=== PATIENT | female | born 1995 | race Caucasian/White ===

== ENCOUNTER 2018-07-09 11:57 | Emergency (ER) | payer OTHER ==
[2018-07-09 12:22] VITALS: BP 110/66
--- NOTE | 2018-07-09 12:29 | Emergency Department Report ---
Blank Doc - Documentation Documentation: 23 y o f presents with low back pain pain and sob x this am also cc of low back pain with no injury fall or trauma upt, ua reevaluate
[2018-07-09 13:36] LABS: Bilirubin,Urine NEG (Negative); Blood,Urine NEG (Negative); Color,Urine Yellow (Yellow); Mucus,Urine FEW /HPF; Protein,Urine <15 mg/dL mg/dL (Negative); Urobilinogen,Urine < 2.0 mg/dL (<2.0); WBC,Urine < 1.0 /HPF (0.0-6.0)
[2018-07-09 13:38] LABS: HCG Qualitative,Urine Negative (Negative)
--- NOTE | 2018-07-09 15:33 | Emergency Department Report ---
ED Back Pain/Injury HPI - General Chief Complaint: Back Pain/Injury Stated Complaint: ALLERGY CRISIS/LOW BACK PAIN Time Seen by Provider: 07/09/18 12:24 Source: patient Limitations: No Limitations - History of Present Illness Initial Comments: Patient is a 23-year-old female who is presenting with low back pain has been present for approximately 3 months. Patient states it hurts worse with movement as 8 out of 10. She states the aching pain. Patient denies any vaginal bleeding or vaginal discharge dysuria cough, congestion or fevers or chills. Patient also states that she chronically has allergies but this morning she woke up and felt like she was gas and for air. Patient took her allergy nasal spray which did improve her symptoms. Again patient denies any cough congestion fevers or chills. - Related Data Previous Rx's Medication Instructions Recorded Last Taken Type ALBUTEROL Inhaler (OR & NICU) 2 puff IH QID PRN #1 inhalation 07/09/18 Unknown Rx [ProAir HFA Inhaler] Fluticasone [Flonase] 1 spray NS QDAY #1 bottle 07/09/18 Unknown Rx Ibuprofen [Motrin] 600 mg PO Q8H PRN #20 tablet 07/09/18 Unknown Rx Loratadine [Claritin] 10 mg PO DAILY #30 tablet 07/09/18 Unknown Rx methOCARBAMOL [Robaxin TAB] 500 mg PO Q6H PRN #15 tablet 07/09/18 Unknown Rx ED Review of Systems ROS: Stated complaint: ALLERGY CRISIS/LOW BACK PAIN Other details as noted in HPI Comment: All other systems reviewed and negative ED Back Pain Physical Exam - Exam General: Vital signs noted. No distress. Alert and acting appropriately. Back/Abdomen: No Abdominal Tenderness, No Perithoracic Tenderness, No Perilumbar Tenderness, No Sacroiliac Tenderness, No Flank Tenderness, No Straight Leg Raise Pain Neuro: Yes Normal Sensation, Yes Normal DTR's, Yes Normal Gait, No Motor Weakness ED Course Vital Signs 07/09/18 12:21 Temperature 97.1 F L Pulse Rate 96 H Respiratory 14 Rate Blood Pressure 110/66 [Left] O2 Sat by Pulse 100 Oximetry ED Medical Decision Making - Lab Data Lab Results 07/09/18 07/09/18 Range/Units 13:25 13:25 Urine Color Yellow (Yellow) Urine Turbidity Clear (Clear) Urine pH 6.0 (5.0-7.0) Ur Specific [place] 1.016 (1.003-1.030) Urine Protein <15 mg/dl (Negative) mg/dL Urine Glucose (UA) Neg (Negative) mg/dL Urine Ketones Neg (Negative) mg/dL Urine Blood Neg (Negative) Urine Nitrite Neg (Negative) Urine Bilirubin Neg (Negative) Urine Urobilinogen < 2.0 (<2.0) mg/dL Ur Leukocyte Esterase Neg (Negative) Urine WBC (Auto) < 1.0 (0.0-6.0) /HPF Urine RBC (Auto) 2.0 (0.0-6.0) /HPF U Epithel Cells (Auto) 6.0 (0-13.0) /HPF Urine Mucus Few /HPF Urine HCG, Qual Negative (Negative) Critical care attestation.: If time is entered above; I have spent that time in minutes in the direct care of this critically ill patient, excluding procedure time. ED Disposition Clinical Impression: Back pain Qualifiers: Back pain location: low back pain Chronicity: chronic Back pain laterality: unspecified Sciatica presence: without sciatica Qualified Code(s): M54.5 - Low back pain; G89.29 - Other chronic pain Allergic rhinitis Qualifiers: Allergic rhinitis trigger: unspecified Allergic rhinitis seasonality: unspecified Qualified Code(s): J30.9 - Allergic rhinitis, unspecified Disposition: DC-01 TO HOME OR SELFCARE Is pt being admited?: No Does the pt Need Aspirin: No Condition: Stable Instructions: Low Back Strain (ED), Allergic Rhinitis (ED) Referrals: SHARRI LEO MD [Staff Physician] - 3-5 Days Time of Disposition: 15:33 Print Language: MALAYSIAN
== END 2018-07-09 15:50 | disposition home or self-care (01) ==
LOC: ED 11:57
DX: M54.5 Low back pain (principal); G89.29 Other chronic pain; J30.9 Allergic rhinitis, unspecified
CPT/HCPCS: 81001; 81025; 99283

== ENCOUNTER 2019-03-16 21:32 | Emergency (ER) | payer OTHER ==
[2019-03-16 21:44] VITALS: BP 115/70
--- NOTE | 2019-03-16 22:08 | Event Note ---
ED Screening Note Date of service: 03/16/19 Time: 22:00 ED Screening Note: This is a 24 y.o. F. that presents to the ER with vomiting, frontal headache, and numbness in lips x 3 days. PMH of PCOS LMP current now This initial assessment/diagnostic orders/clinical plan/treatment(s) is/are sub ject to change based on patients health status, clinical progression and re- assessment by fellow clinical providers in the ED. Further treatment and workup at subsequent clinical providers discretion. Patient/guardian urged not to elope from the ED as their condition may be serious if not clinically assessed and managed. Initial orders include: Labs
[2019-03-16 22:37] LABS: HCG Qualitative,Urine Negative (Negative)
[2019-03-16 22:41] LABS: Bilirubin,Urine NEG (Negative); Blood,Urine LG (Negative); Color,Urine Red (Yellow); Urobilinogen,Urine < 2.0 mg/dL (<2.0)
[2019-03-16 22:44] LABS: RBC,Urine > 182.0 /HPF (0.0-6.0)
[2019-03-16 23:00] LABS: Basophils # (Auto) 0.1 K/mm3 (0.0-0.1); Basophils % (Auto) 0.6 % (0.0-1.8); Eosinophils # (Auto) 0.3 K/mm3 (0.0-0.4); Eosinophils % (Auto) 3.5 % (0.0-4.3); Hematocrit 40.2 % (30.3-42.9); Hemoglobin 13.8 gm/dl (10.1-14.3); Lymphocytes # (Auto) 3.2 K/mm3 (1.2-5.4); Lymphocytes % (Auto) 35.9 % (13.4-35.0); Mean Corpuscular HGB Conc 34 % (30-34); Mean Corpuscular Volume 89 fl (79-97); Monocytes # (Auto) 0.7 K/mm3 (0.0-0.8); Platelet Count 322 K/mm3 (140-440); Red Blood Count 4.51 M/mm3 (3.65-5.03); Red Cell Distribution Width 12.9 % (13.2-15.2)
[2019-03-16 23:17] LABS: Alanine Aminotransferase 18 units/L (7-56); Albumin 4.6 g/dL (3.9-5); BUN/Creatinine Ratio 15; Blood Urea Nitrogen 9 mg/dL (7-17); Calcium 9.7 mg/dL (8.4-10.2); Hemolysis Index 6
[2019-03-16] MEDS ORDERED: TORADOL IV ONE (23:21)
[2019-03-16] MEDS ORDERED: NACL 0.9% 1000 ML 1,000 ML IV ONE (23:21)
[2019-03-16] MEDS ORDERED: BENADRYL IV ONE (23:21)
[2019-03-16] MEDS ORDERED: REGLAN IV ONE (23:21)
--- NOTE | 2019-03-16 23:36 | Emergency Department Report ---
ED Headache HPI - General Chief Complaint: Headache Stated Complaint: VOMITING/GRIJALVA/L EYE PAIN Time Seen by Provider: 03/16/19 21:58 Source: patient Exam Limitations: language barrier (language line used for equatorial guinean interpr etation, interpretor [id number]) - History of Present Illness Initial Comments: Patient is a 24-year-old female presents emergency room with complaints of a frontal headache that began 3 days ago. Patient states she has had one episode of vomiting today and one episode of vomiting yesterday. She states that she also has left eye pain and decreased sensation in the tongue. Denies any vision changes, unilateral weakness, gait disturbance, speech disturbance. pt is able to move the tongue without difficulty. she is not taking anything for her symptoms at all. She denies ever having this in the past. Has a past medical history of chronic back pain and PCOS. Denies any allergies medications. States she is currently on her menstrual cycle. Allergies/Adverse Reactions: Allergies No Known Allergies Allergy (Unverified 03/16/19 21:56) Home Medications: Ambulatory Orders ALBUTEROL Inhaler (OR & NICU) [ProAir HFA Inhaler] 2 puff IH QID PRN #1 inhalation 07/09/18 Fluticasone [Flonase] 1 spray NS QDAY #1 bottle 07/09/18 Ibuprofen [Motrin] 600 mg PO Q8H PRN #20 tablet 07/09/18 Loratadine [Claritin] 10 mg PO DAILY #30 tablet 07/09/18 methOCARBAMOL [Robaxin TAB] 500 mg PO Q6H PRN #15 tablet 07/09/18 Butalb/Acetaminophen/Caffeine [Fioricet 50-300-40 mg CAP] 1 cap PO Q8HR PRN #10 cap 03/17/19 ED Review of Systems ROS: Stated complaint: VOMITING/GRIJALVA/L EYE PAIN Other details as noted in HPI Comment: All other systems reviewed and negative ED Past Medical Hx - Past Medical History Previous Medical History?: Yes Additional medical history: PCOS, MULTIPLE SPINAL DISC ISSUES - Surgical History Past Surgical History?: No - Social History Smoking Status: Current Every Day Smoker - Medications Home Medications: Home Medications Medication Instructions Recorded Confirmed Last Taken Type ALBUTEROL Inhaler (OR & NICU) 2 puff IH QID PRN #1 inhalation 07/09/18 Unknown Rx [ProAir HFA Inhaler] Fluticasone [Flonase] 1 spray NS QDAY #1 bottle 07/09/18 Unknown Rx Ibuprofen [Motrin] 600 mg PO Q8H PRN #20 tablet 07/09/18 Unknown Rx Loratadine [Claritin] 10 mg PO DAILY #30 tablet 07/09/18 Unknown Rx methOCARBAMOL [Robaxin TAB] 500 mg PO Q6H PRN #15 tablet 07/09/18 Unknown Rx Butalb/Acetaminophen/Caffeine 1 cap PO Q8HR PRN #10 cap 03/17/19 Unknown Rx [Fioricet 50-300-40 mg CAP] ED Physical Exam - General Limitations: No Limitations General appearance: alert, in no apparent distress - Head Head exam: Present: atraumatic, normocephalic - Eye Eye exam: Present: normal appearance, PERRL, EOMI. Absent: conjunctival injection, nystagmus, periorbital swelling, periorbital tenderness - ENT ENT exam: Present: mucous membranes moist, other (no sinus TTP bilaterally) - Neck Neck exam: Present: full ROM. Absent: meningismus - Respiratory Respiratory exam: Present: normal lung sounds bilaterally. Absent: respiratory distress, wheezes, rales, rhonchi, stridor, chest wall tenderness, accessory muscle use, decreased breath sounds, prolonged expiratory - Cardiovascular Cardiovascular Exam: Present: regular rate, normal rhythm, normal heart sounds. Absent: systolic murmur, diastolic murmur, rubs, gallop - Neurological Exam Neurological exam: Present: alert, oriented X3, CN II-XII intact, normal gait, other (normal finger to nose, normal heel to rooney, 5/5 strength in the BUE/BLE, sensation intact throughout, no focal neuro deficit, no tongue deviation, normal speech). Absent: motor sensory deficit - Psychiatric Psychiatric exam: Present: normal affect, normal mood - Skin Skin exam: Present: warm, dry, intact ED Course Vital Signs 03/16/19 03/16/19 21:42 22:03 Temperature 97.9 F 97.9 F Pulse Rate 72 72 Respiratory 18 18 Rate Blood Pressure 115/70 115/70 O2 Sat by Pulse 99 99 Oximetry ED Medical Decision Making - Lab Data Result diagrams: 03/16/19 22:33 03/16/19 22:33 Lab Results 10/19/19 10/19/19 10/19/19 Range/Units 22:33 22:33 Unknown WBC 9.0 (4.5-11.0) K/mm3 RBC 4.51 (3.65-5.03) M/mm3 Hgb 13.8 (10.1-14.3) gm/dl Hct 40.2 (30.3-42.9) % MCV 89 (79-97) fl MCH 31 (28-32) pg MCHC 34 (30-34) % RDW 12.9 L (13.2-15.2) % Plt Count 322 (140-440) K/mm3 Lymph % (Auto) 35.9 H (13.4-35.0) % [place] % (Auto) 8.0 H (0.0-7.3) % Eos % (Auto) 3.5 (0.0-4.3) % Baso % (Auto) 0.6 (0.0-1.8) % Lymph # 3.2 (1.2-5.4) K/mm3 [place] # 0.7 (0.0-0.8) K/mm3 Eos # 0.3 (0.0-0.4) K/mm3 Baso # 0.1 (0.0-0.1) K/mm3 Seg Neutrophils % 52.0 (40.0-70.0) % Seg Neutrophils # 4.7 (1.8-7.7) K/mm3 Sodium 138 (137-145) mmol/L Potassium 4.5 (3.6-5.0) mmol/L Chloride 99.8 (98-107) mmol/L Carbon Dioxide 26 (22-30) mmol/L Anion Gap 17 mmol/L BUN 9 (7-17) mg/dL Creatinine 0.6 L (0.7-1.2) mg/dL Estimated GFR > 60 ml/min BUN/Creatinine Ratio 15 % Glucose 96 (65-100) mg/dL Calcium 9.7 (8.4-10.2) mg/dL Total Bilirubin 0.40 (0.1-1.2) mg/dL AST 12 (5-40) units/L ALT 18 (7-56) units/L Alkaline Phosphatase 61 (35-129) units/L Total Protein 7.4 (6.3-8.2) g/dL Albumin 4.6 (3.9-5) g/dL Albumin/Globulin Ratio 1.6 % Urine Color Red (Yellow) Urine Turbidity Slightly-cloudy (Clear) Urine pH 6.0 (5.0-7.0) Ur Specific [place] 1.014 (1.003-1.030) Urine Protein 30 mg/dl (Negative) mg/dL Urine Glucose (UA) Neg (Negative) mg/dL Urine Ketones Neg (Negative) mg/dL Urine Blood Lg (Negative) Urine Nitrite Neg (Negative) Ur Reducing Substances Not Reportable Urine Bilirubin Neg (Negative) Urine Ictotest Not Reportable Urine Urobilinogen < 2.0 (<2.0) mg/dL Ur Leukocyte Esterase Neg (Negative) Urine WBC (Auto) 2.0 (0.0-6.0) /HPF Urine RBC (Auto) > 182.0 (0.0-6.0) /HPF Urine HCG, Qual Negative (Negative) - Radiology Data Radiology results: report reviewed CT head without contrast INDICATION : Headache with dizziness TECHNIQUE: Axial imaging performed from the skull apex through the skull base without the use of contrast. All CT examinations performed at this facility utilize dose modulation, iterative reconstruction or weight-based dosing, when appropriate, to reduce radiation dose to as low as reasonably achievable. COMPARISON: None FINDINGS: No acute intracranial hemorrhage or parenchymal abnormality. Ventricles are normal in size and appear symmetric. Soft tissues including the orbits appear normal. No acute osseous abnormality. Sinuses and mastoid air cells are clear. IMPRESSION: No acute abnormality. Signer Name: Victor M Bernabe MD Signed: 03/16/2019 11:46 PM Workstation Name: [id number] Transcribed By: BC Dictated By: Victor M Bernabe MD Electronically Authenticated By: Victor M Bernabe MD Signed Date/Time: 03/16/19 1000 - Medical Decision Making Patient is a 24-year-old female presents emergency room with complaints of a frontal headache that began 3 days ago. Patient states she has had one episode of vomiting today and one episode of vomiting yesterday. She states that she also has left eye pain and decreased sensation in the tongue. Denies any vision changes, unilateral weakness, gait disturbance, speech disturbance. pt is able to move the tongue without difficulty. she is not taking anything for her symptoms at all. She denies ever having this in the past. Has a past medical history of chronic back pain and PCOS. Denies any allergies medications. States she is currently on her menstrual cycle. VSS. no neurological deficits on examination. labs are stable. UA shows RBCs from her menstrual cycle otherwise normal. urine preg is negative. CT head: No acute abnormality. pt given 1L of NS, reglan, and toradol and GRIJALVA completely resolved and pt is feeling better. she declined the benadryl. Discussed all results with patient and patient's questions answered. Patient given prescription for Fioricet. advised pt to Take medication as prescribed as needed. Please increase your water intake. Follow- up with a neurologist in the next 2-3 days. Return to the emergency room for any worsening symptoms. equatorial gu[place] interpretation for results of tests, answer questions, and disposition performed by Mike optical laboratory technician - Differential Diagnosis migraine, tension GRIJALVA, cluster GRIJALVA, sinusitis, mass, ICH, SDH, CVA Critical care attestation.: If time is entered above; I have spent that time in minutes in the direct care of this critically ill patient, excluding procedure time. ED Disposition Clinical Impression: Headache Qualifiers: Headache type: unspecified Headache chronicity pattern: acute headache Intractability: not intractable Qualified Code(s): R51 - Headache Disposition: DC-01 TO HOME OR SELFCARE Is pt being admited?: No Does the pt Need Aspirin: No Condition: Stable Instructions: Acute Headache (ED) Additional Instructions: Take medication as prescribed as needed. Please increase your water intake. Follow-up with a neurologist in the next 2-3 days. Return to the emergency room for any worsening symptoms. Winger la medicacin segn lo prescrito segn sea necesario. Por favor aumente funes consumo de agua. Ananya un seguimiento con un neurlogo en los prximos 2-3 hammond. Regrese a la fabricio de emergencias por cualquier empeoramiento de los sntomas. Prescriptions: Butalb/Acetaminophen/Caffeine [Fioricet 50-300-40 mg CAP] 1 cap PO Q8HR PRN #10 cap PRN Reason: headache Referrals: PRIMARY CAREMD [Primary Care Provider] - 2-3 Days AMNA MCKEE MD [Referring] - 2-3 Days DAPHNIE DAVIS MD [Staff Physician] - 2-3 Days Time of Disposition: 00:16 Print Language: ROMANIAN
--- NOTE | 2019-03-16 23:50 | Cat Scan Report ---
CT head without contrast INDICATION : Headache with dizziness TECHNIQUE: Axial imaging performed from the skull apex through the skull base without the use of con trast. All CT examinations performed at this facility utilize dose modulation, iterative reconstruct ion or weight-based dosing, when appropriate, to reduce radiation dose to as low as reasonably achiev able. COMPARISON: None FINDINGS: No acute intracranial hemorrhage or parenchymal abnormality. Ventricles are normal in si ze and appear symmetric. Soft tissues including the orbits appear normal. No acute osseous abnorm ality. Sinuses and mastoid air cells are clear. IMPRESSION: No acute abnormality. Signer Name: Victor M Bernabe MD Signed: 03/16/2019 11:46 PM Workstation Name: [id number]
[2019-03-17] MEDS ORDERED: SOLU-Medrol ONE (16:11)
== END 2019-03-17 00:31 | disposition home or self-care (01) ==
LOC: ED 21:32
DX: R51 Headache (principal); R11.10 Vomiting, unspecified; H57.12 Ocular pain, left eye; F17.200 Nicotine dependence, unspecified, uncomplicated; E28.2 Polycystic ovarian syndrome; Z79.899 Other long term (current) drug therapy
CPT/HCPCS: 36415; 70450; 80053; 81001; 81025; 85025; 96361; 96374; 96375; 99284; J1200; J1885; J2765; J7030; J2920

== ENCOUNTER 2019-03-17 11:39 | Observation (INO) | payer OTHER ==
--- NOTE | 2019-03-17 11:49 | Event Note ---
ED Screening Note Date of service: 03/17/19 Time: 11:46 ED Screening Note: This is a 24 y.o. F. that presents to the ER with worsening numbness and tingling to right side of face. Started on Fioricet and referred to neurology yesterday. This initial assessment/diagnostic orders/clinical plan/treatment(s) is/are subject to change based on patients health status, clinical progression and re- assessment by fellow clinical providers in the ED. Further treatment and workup at subsequent clinical providers discretion. Patient/guardian urged not to elope from the ED as their condition may be serious if not clinically assessed and managed. Initial orders include:
[2019-03-17] MEDS ORDERED: BENADRYL IV ONE (12:56)
[2019-03-17] MEDS ORDERED: REGLAN IV ONE (12:56)
[2019-03-17] MEDS ORDERED: TORADOL IV ONE (12:56)
--- NOTE | 2019-03-17 13:00 | Emergency Department Report ---
ED Neuro Deficit HPI - General Chief Complaint: Neuro Symptoms/Deficit Stated Complaint: R EYE TINGLE/NUMBNESS/FACE DROPE Time Seen by Provider: 03/17/19 11:43 Source: patient Mode of arrival: Ambulatory Limitations: No Limitations - History of Present Illness Initial Comments: 24-year-old female with past medical history of PCOS and chronic back pain p resents to the hospital complains of numbness to right side of face that she noted while brushing her teeth this morning. Patient was seen and evaluated a year yesterday for a frontal headache that began 3 days ago with associated vomiting for the past 2 days prior to presentation. She also complained of some left eye pain and decreased sensation to the tongue. Patient was treated with Toradol, Benadryl, and Reglan and had a CT head that was negative. She was discharged on Fioricet. Patient had an epidural performed 10 days ago for chronic back pain. She does have a history of previous headaches but has not had headaches in quite some time. Patient now complains of a pressure to the top and back of head rated 7/10 in intensity. She denies eye pain, blurred vision, nausea, or vomiting. - Related Data Home Medications: Previous Rx's Medication Instructions Recorded Last Taken Type ALBUTEROL Inhaler (OR & NICU) 2 puff IH QID PRN #1 inhalation 07/09/18 Unknown Rx [ProAir HFA Inhaler] Fluticasone [Flonase] 1 spray NS QDAY #1 bottle 07/09/18 Unknown Rx Ibuprofen [Motrin] 600 mg PO Q8H PRN #20 tablet 07/09/18 Unknown Rx Loratadine [Claritin] 10 mg PO DAILY #30 tablet 07/09/18 Unknown Rx methOCARBAMOL [Robaxin TAB] 500 mg PO Q6H PRN #15 tablet 07/09/18 Unknown Rx Butalb/Acetaminophen/Caffeine 1 cap PO Q8HR PRN #10 cap 03/17/19 Unknown Rx [Fioricet 50-300-40 mg CAP] Allergies/Adverse Reactions: Allergies Allergy/AdvReac Type Severity Reaction Status Date / Time No Known Allergies Allergy Verified 03/17/19 11:41 ED Review of Systems ROS: Stated complaint: R EYE TINGLE/NUMBNESS/FACE DROPE Other details as noted in HPI Comment: All other systems reviewed and negative ED Past Medical Hx - Past Medical History Previous Medical History?: Yes Additional medical history: PCOS, MULTIPLE SPINAL DISC ISSUES - Surgical History Past Surgical History?: No - Social History Smoking Status: Never Smoker Substance Use Type: None - Medications Home Medications: Home Medications Medication Instructions Recorded Confirmed Last Taken Type ALBUTEROL Inhaler (OR & NICU) 2 puff IH QID PRN #1 inhalation 07/09/18 Unknown Rx [ProAir HFA Inhaler] Fluticasone [Flonase] 1 spray NS QDAY #1 bottle 07/09/18 Unknown Rx Ibuprofen [Motrin] 600 mg PO Q8H PRN #20 tablet 07/09/18 Unknown Rx Loratadine [Claritin] 10 mg PO DAILY #30 tablet 07/09/18 Unknown Rx methOCARBAMOL [Robaxin TAB] 500 mg PO Q6H PRN #15 tablet 07/09/18 Unknown Rx Butalb/Acetaminophen/Caffeine 1 cap PO Q8HR PRN #10 cap 03/17/19 Unknown Rx [Fioricet 50-300-40 mg CAP] ED Neuro Physical Exam - General Limitations: No Limitations Suspected Stroke: No - Neurological Exam Neurological exam: Present: alert - NIHSS Assessment Interval: Baseline 1a. Level of Consciousness: alert/keenly responsive 1b. LOC Questions: answers both correctly 1c. LOC Commands: performs tasks correctly 2. Best Gaze: normal 3. Visual: no visual loss 4. Facial Palsy: unilateral complete paralysis (mild upper right weakness, more pronounced in lower face) 5b. Motor Arm Right: no drift 5a. Motor Arm Left: no drift 6a. Motor Leg Left: no drift 6b. Motor Leg Right: no drift 7. Limb Ataxia: absent 8. Sensory: mild/moderate sensory loss (to right side of face) 9. Best Language: no aphasia 10. Dysarthria: normal 11. Extinction/Inattention: no abnormality Total Score: 4 Stroke Severity: Minor Stroke - Other Other exam information: Gen.: No acute distress Head: Atraumatic Eyes: Normal appearance ENT: Moist mucous membranes Neck: Normal appearance, no posterior midline tenderness, no meningismus Chest: Clear to auscultation bilaterally Cardiovascular: Regular rate and rhythm Abdomen: Normal appearance, soft, nontender, no rebound or guarding, normal bowel sounds Back: Normal appearance, nontender Extremity: Full range of motion, normal appearance Neuro: Alert O x3, clear speech, left-sided facial weakness to the lower face and to a lesser extent the upper face and decreased sensation to the lower two thirds of the face. see NIHSS Psychiatric: Appropriate Skin: No rash ED Course Vital Signs 03/17/19 03/17/19 03/17/19 11:44 12:11 12:46 Temperature 98.8 F Pulse Rate 95 H Respiratory 18 18 18 Rate Blood Pressure 142/68 Blood Pressure 118/70 [Left] O2 Sat by Pulse 100 98 99 Oximetry 03/17/19 03/17/19 03/17/19 12:47 14:49 16:00 Temperature 98.2 F Pulse Rate 90 88 92 H Respiratory 18 18 Rate Blood Pressure Blood Pressure 101/59 106/63 [Left] O2 Sat by Pulse 99 98 Oximetry - Consultations Consultation #1: 03/17/19 13:20 requested tele neuro assessment 03/17/19 13:[address] Marcelino, rec MRI for neuro clearance - Medical Decision Making Case discussed with the neurologist who recommends MRI which unfortunately is not available over the weekend. This will require inpatient admission which was discussed with the consulting neurologist. Case discussed with hospitalist for admission. Patient treated with Reglan, Benadryl, and Toradol in the ED for headache. ASA also provided pending completion of neuro workup. - Differential Diagnosis migraine, bells, ms, infection, Critical Care Time: No Critical care attestation.: If time is entered above; I have spent that time in minutes in the direct care of this critically ill patient, excluding procedure time. ED Disposition Clinical Impression: Weakness on left side of face, Numbness and tingling of left side of face Headache Qualifiers: Headache type: unspecified Headache chronicity pattern: acute headache Intractability: not intractable Qualified Code(s): R51 - Headache Disposition: OP ADMIT IP TO THIS HOSP Is pt being admited?: Yes Does the pt Need Aspirin: Yes Condition: Stable Time of Disposition: 14:07 (Dr Rendon/hosp)
--- NOTE | 2019-03-17 13:53 | Consultation ---
History of Present Illness History of present illness: [facility] Impression: Exam seems more functional. Can rule out sinister intracranial process with MRI brain wow - if this is negative, then can follow up with outpatient neurology. Recommendations: MRI brain wow Nonnarcotic analgesics for GRIJALVA - NSAID, steroid, anti-dopaminergic anti-emetic, magnesium Gentle hydration If MRI brain normal, then can follow up with outpatient neurology Discussed with ED MD CC: GRIJALVA History of Present Illness: 24 year old woman with a history of PCOS, chronic back pain presenting with GRIJALVA and facial symptoms. Was in the ED yesterday for 3 days of migrating GRIJALVA with reported vomiting, but no light/sound sensitivity. She had a normal exam and CT and was discharged with Fiorcet. She returns today stating she was brushing her teeth this morning and felt the right side of her mouth was numb and drooping. Still feels she has these symptoms. Notes she continues to have a migrating GRIJALVA that shifts around her head and is aching. No position GRIJALVA. No pulsatile tinnitus. No extremity symptoms. Diagnostic Testing: CT head wo 03/16 - normal Vital Signs: Reviewed in EMR Exam: Mental Status: Awake, alert, oriented Naming: Intact Repetition: Intact Speech: fluent Cranial Nerves: Pupils: Equal round and reactive to light Extraocular movements: Intact in all cardinal gaze Ptosis: Absent Visual ramos: Intact to finger counting Facial sensation: reduced on right Facial movements: at rest face is symmetric with symmetric movement when speaking. When formally testing, she has odd contortion of the mouth Motor Exam: No drift Tremor/Abnormal Movements: Resting tremor: Absent Intention tremor: Absent Postural tremor: Absent Sensory Exam: Light touch: Intact Pinprick: Intact Coordination: Finger to nose: Intact Heel to rooney: Intact Medical Decision Making: - Extensive number of diagnosis or management options are considered above. - Extensive amount of complex data reviewed. - High risk of complication and/or morbidity or mortality are associated with differential diagnostic considerations above. - There may be uncertain outcome and increased probability of prolonged functional impairment or high probability of severe prolonged functional impairment associated with some of these differential diagnosis. Medical Data Reviewed: 1.Data reviewed include clinical labs, radiology, Medical Tests; 2.Tests results discussed w/performing or interpreting physician; 3.Obtaining/reviewing old medical records; 4.Obtaining case history from another source; 5.Independent review of image, tracing or specimen. Patient was informed the Neurology Consult would happen via TeleHealth consult by way of interactive audio and video telecommunications and consented to receiving care in this manner. Medications and Allergies Allergies Allergy/AdvReac Type Severity Reaction Status Date / Time No Known Allergies Allergy Verified 03/17/19 11:41 Home Medications Medication Instructions Recorded Confirmed Last Taken Type ALBUTEROL Inhaler (OR & NICU) 2 puff IH QID PRN #1 inhalation 07/09/18 Unknown Rx [ProAir HFA Inhaler] Fluticasone [Flonase] 1 spray NS QDAY #1 bottle 07/09/18 Unknown Rx Ibuprofen [Motrin] 600 mg PO Q8H PRN #20 tablet 07/09/18 Unknown Rx Loratadine [Claritin] 10 mg PO DAILY #30 tablet 07/09/18 Unknown Rx methOCARBAMOL [Robaxin TAB] 500 mg PO Q6H PRN #15 tablet 07/09/18 Unknown Rx Butalb/Acetaminophen/Caffeine 1 cap PO Q8HR PRN #10 cap 03/17/19 Unknown Rx [Fioricet 50-300-40 mg CAP] Physical Examination - Vital Signs Vital Signs: Vital Signs Temp Pulse Resp BP Pulse Ox 98.8 F 95 H 18 142/68 100 03/17/19 11:44 03/17/19 11:44 03/17/19 11:44 03/17/19 11:44 03/17/19 11:44
--- NOTE | 2019-03-17 15:42 | History and Physical Report ---
History of Present Illness Chief complaint: My face is numb, and I cant close my eye History of present illness: 24 YO Female with Obesity, PCOS, LDD, Migraine GRIJALVA presents to ED for evaluation. Pt states that she has experienced sudden onset of Right facial numbness and inability to close her right eye. Pt states that she noticed the aforementioned symptoms while brushing her teeth this morning, and looked at her face in the mirror and noticed the changes as described. Pt also reports frontal headache over the past 3 days. Pt reports that headache is 3-7/10, frontal, associated with vomiting, intermittent, and improved with Fioricet. Pt was seen and evaluated in ED on 03/16 and discharged home with outpatient therapy and F/U care. Pt returns to ED today for reevaluation. Pt seen and evaluated in ED. Teleneurology consulted, and recommend admission for further evaluation. Pt denies fever, chills, CP, Palpitations, vertigo, seizure, vision loss, loss of bowel/bladder continence, skin rash, productive cough, or recent ill contacts. Pt placed in Observation status and admitted to medical floor. No prior a dmission for review. All listed mediation reconciled at time of admission. Neurology consulted in ED. Past History Past Medical History: other (see hpi) Past Surgical History: Other (Lumbar Puncture) Social history: , lives with family. denies: smoking, alcohol abuse, prescription drug abuse Family history: no significant family history (reviewed) Medications and Allergies Allergies Allergy/AdvReac Type Severity Reaction Status Date / Time No Known Allergies Allergy Verified 03/17/19 11:41 Home Medications Medication Instructions Recorded Confirmed Last Taken Type ALBUTEROL Inhaler (OR & NICU) 2 puff IH QID PRN #1 inhalation 07/09/18 Unknown Rx [ProAir HFA Inhaler] Fluticasone [Flonase] 1 spray NS QDAY #1 bottle 07/09/18 Unknown Rx Ibuprofen [Motrin] 600 mg PO Q8H PRN #20 tablet 07/09/18 Unknown Rx Loratadine [Claritin] 10 mg PO DAILY #30 tablet 07/09/18 Unknown Rx methOCARBAMOL [Robaxin TAB] 500 mg PO Q6H PRN #15 tablet 07/09/18 Unknown Rx Butalb/Acetaminophen/Caffeine 1 cap PO Q8HR PRN #10 cap 10/20/19 Unknown Rx [Fioricet 50-300-40 mg CAP] Review of Systems Constitutional: no weight loss, no weight gain, no fever, no chills Ears, nose, mouth and throat: headache, no ear pain, no ear discharge, no tinnitis Breasts: no change in shape, no swelling, no mass Cardiovascular: no chest pain, no orthopnea, no palpitations, no rapid/irregular heart beat, no edema, no syncope Respiratory: no cough, no cough with sputum, no shortness of breath Gastrointestinal: no abdominal pain, no nausea, no vomiting, no diarrhea, no constipation, no change in bowel habits Genitourinary Female: no pelvic pain, no flank pain, no menorrhagia, no dysuria, no urinary frequency, no urgency Rectal: no pain, no incontinence, no bleeding Musculoskeletal: no neck stiffness, no neck pain, no shooting arm pain, no arm numbness/tingling, no low back pain, no shooting leg pain, no leg numbness/tingling Integumentary: no rash, no pruritis, no redness, no sores, no wounds Neurological: numbness, headaches, no seizures, no change in speech, no change in mentation, no confusion, no memory loss Psychiatric: no anxiety, no memory loss, no change in sleep habits, no sleep disturbances, no insomnia, no hypersomnia, no change in appetite, no change in libido, no suicidal ideation Endocrine: no cold intolerance, no polyphagia, no excessive thirst, no polydipsia, no polyuria, no nocturia Hematologic/Lymphatic: no easy bruising, no easy bleeding, no lymphadenopathy, no lymphedema Allergic/Immunologic: no urticaria, no allergic rhinitis, no persistent infections, no angioedema Exam - Constitutional Vitals: Temp Pulse Resp BP Pulse Ox 98.8 F 88 18 101/59 99 03/17/19 11:44 03/17/19 14:49 03/17/19 14:49 03/17/19 14:49 03/17/19 14:49 General appearance: Present: no acute distress, well-nourished - EENT Eyes: Present: PERRL (right facial droop) ENT: hearing intact, clear oral mucosa - Neck Neck: Present: supple, normal ROM - Respiratory Respiratory effort: normal Respiratory: bilateral: CTA - Cardiovascular Heart Sounds: Present: S1 & S2. Absent: rub, click - Extremities Extremities: pulses symmetrical, No edema Peripheral Pulses: within normal limits - Abdominal General gastrointestinal: Present: soft, non-tender, non-distended, normal bowel sounds Female genitourinary: Present: normal - Integumentary Integumentary: Present: clear, warm, dry - Musculoskeletal Musculoskeletal: gait normal, strength equal bilaterally - Psychiatric Psychiatric: appropriate mood/affect, intact judgment & insight - Neurologic Neurologic: CNII-XII intact, moves all extremities Assessment and Plan - Patient Problems (1) CVA (cerebral vascular accident) Current Visit: Yes Status: Acute Qualifiers: Laterality of affected vessel: unspecified Plan to address problem: CVA Protocol: Teleneurology consulted, recommended admission, Neurology consulted, further imaging as per neurology team, antiplatelet therapy, PT/OT/Speech, Carotic Doppler, Echo, statin therapy, lipid panel, (2) Shelton's palsy Current Visit: Yes Status: Acute Plan to address problem: IV steroid therapy, supportive care, ESR, neuro checks (3) Obesity Current Visit: Yes Status: Acute Qualifiers: Body mass index: BMI 30.0-30.9 Plan to address problem: balanced diet, increased physical activity at discharge, (4) DVT prophylaxis Current Visit: Yes Status: Acute Plan to address problem: SCD to BLE while in bed, Pt ambulatory
[2019-03-17] MEDS ORDERED: PHENERGAN PR PRN (15:43)
[2019-03-17] MEDS ORDERED: MILK OF MAGNESIA PO PRN (15:43)
[2019-03-17] MEDS ORDERED: SODIUM CHLORIDE FLUSH SYRINGE 10 ML IV PRN (15:43)
[2019-03-17] MEDS ORDERED: DULCOLAX PR PRN (15:43)
[2019-03-17] MEDS ORDERED: ZOFRAN IV PRN (15:43)
[2019-03-17] MEDS ORDERED: REGLAN PO PRN (15:43)
[2019-03-17] MEDS ORDERED: SOLU-Medrol ONE (16:40)
[2019-03-17] MEDS: SOLU-Medrol IV SCH (17:30)
[2019-03-17] MEDS: TYLENOL PO PRN (20:23)
[2019-03-17] MEDS: GABAPENTIN PO SCH (22:13)
[2019-03-18] MEDS ORDERED: ASPIRIN PO SCH (10:00)
--- NOTE | 2019-03-18 10:26 | Magnetic Resonance Report ---
MRI BRAIN WITHOUT CONTRAST INDICATION / CLINICAL INFORMATION: Right facial numbness. TECHNIQUE: Multiplanar, multisequence MR images of the brain were obtained. COMPARISON: CT head dated 03/16/2019 FINDINGS: BRAIN / INTRACRANIAL CONTENTS: The brain parenchyma signal intensity and its chowdhury-white interface are within normal limits on all sequences. No acute ischemia, acute hemorrhage, mass effect, midline candie ft, or hydrocephalus. No chronic infarct or atrophy. No significant white matter abnormality. CRANIOCERVICAL JUNCTION: No significant abnormality. Thin collimation images through the brainstem de monstrate no abnormality. The bilateral cranial 5 nerves and Meckel's cave regions are unremarkable. The cranial 7/8 nerve complexes are also unremarkable. VASCULAR FLOW-VOIDS: No significant abnormality. ORBITS: No significant abnormality of visualized orbits. SINUSES / MASTOIDS: No significant abnormality of visualized sinuses and mastoid air cells. ADDITIONAL FINDINGS: None. IMPRESSION: Normal MR brain without contrast. Signer Name: Todd Garcia Jr, MD Signed: 03/18/2019 10:22 AM Workstation Name: [id number]
[2019-03-18] MEDS ORDERED: AFLURIA QUAD 2019-2020 (3YR UP) IM ONE (12:00)
--- NOTE | 2019-03-18 12:12 | Discharge Summary ---
Providers - Providers Date of Admission: 03/17/19 15:43 Date of discharge: 03/18/19 Attending physician: JJ ARMSTRONG 03/17/19 15:43 Occupational Therapy Evaluate and Treat [CONS] Routine Comment: Reason For Exam: Neuro deficits Physical Therapy Evaluation and Treat [CONS] Routine Comment: Reason For Exam: Neuro deficits 03/17/19 15:44 Speech Therapy Evaluation and Treat [CONS] Routine Reason For Exam: swallow eval 03/17/19 20:32 Consult to Physician [CONS] Routine Comment: Consulting Provider: LENIN ALLEN Physician Instructions: Reason For Exam: cva/bells palsy 03/18/19 11:56 Consult to Physician [CONS] Routine Comment: Consulting Provider: LENIN ALLEN Physician Instructions: Reason For Exam: complex migraine [facility]: Stable Pertinent studies: Brain MRI - no acute infract Hospital course: Discharge diagnosis: Complex migraine with facial numbness - outpt neurology f/u Acute CVA/bells palsy - ruled out, CT head/MRI brain negative Disposition: DC-01 TO HOME OR SELFCARE Time spent for discharge: 34 minutes Core Measure Documentation - Palliative Care Palliative Care/ Comfort Measures: Not Applicable - Core Measures Any of the following diagnoses?: none Exam - Constitutional Vitals: Temp Pulse Resp BP Pulse Ox 98.7 F 85 16 106/59 98 03/18/19 06:07 03/18/19 06:07 03/18/19 06:07 03/18/19 06:07 03/18/19 08:00 General appearance: Present: no acute distress, well-nourished - EENT Eyes: Present: PERRL ENT: hearing intact, clear oral mucosa - Neck Neck: Present: supple, normal ROM - Respiratory Respiratory effort: normal Respiratory: bilateral: CTA - Cardiovascular Heart Sounds: Present: S1 & S2. Absent: rub, click - Extremities Extremities: pulses symmetrical, No edema Peripheral Pulses: within normal limits - Abdominal General gastrointestinal: Present: soft, non-tender, non-distended, normal bowel sounds - Integumentary Integumentary: Present: clear, warm, dry - Musculoskeletal Musculoskeletal: gait normal, strength equal bilaterally - Psychiatric Psychiatric: appropriate mood/affect, intact judgment & insight - Neurologic Neurologic: no focal deficits, moves all extremities Plan Activity: advance as tolerated Weight Bearing Status: Weight Bear as Tolerated Diet: regular Follow up with: LEVI KIMBROUGH MD [Primary Care Provider] - 7 Days ELIZABETH RODRIGUES MD [Staff Physician] - 7 Days Prescriptions: Butalb/Acetaminophen/Caffeine [Fioricet 50-300-40 mg CAP] 1 cap PO Q8HR PRN #7 cap PRN Reason: Headache
[2019-03-18] MEDS: TYLENOL PO PRN (17:48)
[2019-03-18] MEDS: GABAPENTIN PO SCH (17:49)
[2019-03-18] MEDS: SOLU-Medrol IV SCH (17:51)
--- NOTE | 2019-03-18 18:31 | Consultation ---
History of Present Illness Consult date: 03/18/19 Reason for Consult: Right facial weakness Chief complaint: Right facial weakness History of present illness: Patient is a 24 y/o woman w/ a h/o PCOS, chronic back pain. She p/w Rt/ facial numbness/paresthesias that began yesterday while brushing her teeth. Patient reportedly came to the ER 3 days ago w/ symptoms of GRIJALVA, nausea, and vomiting. She was given fioricet and sent home. Patient had an epidural on 03/07/19 for back pain, and states that she developed GRIJALVA 2-3 days afterwards, which were described as generalized, throbbing, associated w/ nausea/vomiting, not related to position. Her GRIJALVA has not improved, and is almost resolved. Past History Past Medical History: other (see hpi) Past Surgical History: Other (Lumbar Puncture) Social history: , lives with family. denies: smoking, alcohol abuse, prescription drug abuse Family history: no significant family history (reviewed) Medications and Allergies Allergies Allergy/AdvReac Type Severity Reaction Status Date / Time No Known Allergies Allergy Verified 03/17/19 11:41 Home Medications Medication Instructions Recorded Confirmed Last Taken Type Fluticasone [Flonase] 1 spray NS QDAY #1 bottle 07/09/18 03/17/19 Unknown Rx Loratadine [Claritin] 10 mg PO DAILY #30 tablet 07/09/18 03/17/19 Unknown Rx Gabapentin [Neurontin] 300 mg PO BID 03/17/19 03/17/19 Unknown History Butalb/Acetaminophen/Caffeine 1 cap PO Q8HR PRN #7 cap 03/18/19 Unknown Rx [Fioricet 50-300-40 mg CAP] Active Meds: Active Medications Acetaminophen (Tylenol) 650 mg PO Q4H PRN PRN Reason: Pain, Mild (1-3) Last Admin: 03/18/19 17:48 Dose: 650 mg Documented by: Aspirin (Aspirin) 325 mg PO QDAY [facility] Last Admin: 03/18/19 10:27 Dose: 325 mg Documented by: Atorvastatin Calcium (Lipitor) 40 mg PO QHS [facility] Last Admin: 03/17/19 22:13 Dose: 40 mg Documented by: Bisacodyl (Dulcolax) 10 mg TN QDAY PRN PRN Reason: Constipation Gabapentin (Neurontin) 600 mg PO QPM [facility] Last Admin: 03/18/19 17:49 Dose: 600 mg Documented by: Magnesium Hydroxide (Milk Of Magnesia) 30 ml PO Q4H PRN PRN Reason: Constipation Methylprednisolone Sodium Succinate (Solu-Medrol) 40 mg IV Q24H [facility] Last Admin: 03/18/19 17:51 Dose: 40 mg Documented by: Metoclopramide HCl (Reglan) 10 mg PO Q6H PRN PRN Reason: Nausea And Vomiting Ondansetron HCl (Zofran) 4 mg IV Q8H PRN PRN Reason: Nausea And Vomiting Promethazine HCl (Phenergan) 25 mg TN Q6H PRN PRN Reason: Nausea And Vomiting Sodium Chloride (Sodium Chloride Flush Syringe 10 Ml) 10 ml IV PRN PRN PRN Reason: LINE FLUSH Review of Systems All systems: negative Neurological: numbness, headaches Physical Examination - Vital Signs Vital Signs: Vital Signs Temp Pulse Resp BP Pulse Ox 98.8 F 95 H 18 142/68 100 03/17/19 11:44 03/17/19 11:44 03/17/19 11:44 03/17/19 11:44 03/17/19 11:44 - Physical Exam Narrative exam: Patient is awake, alert, oriented x4, follows complex commands. PERRL, EOMI, tongue midline, decrease to LT on Rt. face, noted to have mild weakness in upper and lower part of Rt. side of face, which appears to be intermittently distractable. Decreased taste sensation on right side of tongue. 5/5 strength in all extremities, B/l intact to LT. B/l intact to FTN and HTS. 2+ reflexes throughout. No aphasia or dysarthria noted. - Constitutional General appearance: comfortable - EENT EENT: Present: ATNC, PERRL, mucous membranes moist, hearing intact, vision intact - Respiratory Respiratory: Present: lungs clear, normal breath sounds - Cardiovascular Cardiovascular: Present: regular rate, normal S1, normal S2 Extremities: Present: no peripheral edema bilatateraly, no clubbing, cyanosis, no inflammation - Gastrointestinal Gastrointestinal: Present: normoactive bowel sounds, soft, non-tender - Integumentary Integumentary: Present: normal - Musculoskeletal Musculoskeletal: Present: no fluid collection - Psychiatric Psychiatric: Present: mood/affect appropriate Assessment and Plan Patient is a 24 y/o woman w/ a h/o PCOS, chronic back pain who p/w right facial paresthesias and weakness. According to the patient's clinical findings, it is possible that she has right facial nerve palsy. In support of this diagnosis, is the fact that she has mild weakness on upper and lower part of right side of face, and has decreased sensation on right side of tongue. Alternatively, patient may have conversion disorder, as there appears to be a somewhat distractable component to the facial weakness. There is also possibility of CSF leak causing GRIJALVA, however GRIJALVA have improved and almost resolved now, and do not have a postural/positional component. Plan: 1. Right facial weakness - Possible aguillon's palsy - MRI brain unremarkable - Will check MRV brain to rule out central venous thrombosis, as patient has history of OCP use, and has recently had an epidural for back pain. - Discussed possibility of CSF leak causing headache, however patient's GRIJALVA is improving, and almost completely resolved now. Patient did not want to pursue CT myelogram at this point, as GRIJALVA have improved. If they worsen of persist, this could be done in the future. - Will start patient on Valacyclovir 500mg TID for 10 days, and Prednisone 80mg daily for 10 days for Right facial nerve palsy. - Will continue to monitor patient. Thank you for allowing me to take part in the care of this patient. Roni St MD Neurology
[2019-03-19] MEDS: VALTREX PO SCH ×2 (09:08→17:59)
[2019-03-19] MEDS ORDERED: DELTASONE PO SCH (10:00)
--- NOTE | 2019-03-19 12:36 | Discharge Summary ---
Providers - Providers Date of Admission: 03/17/19 15:43 Date of discharge: 03/19/19 Attending physician: SANDRO LICONA 03/17/19 15:43 Occupational Therapy Evaluate and Treat [CONS] Routine Comment: Reason For Exam: Neuro deficits Physical Therapy Evaluation and Treat [CONS] Routine Comment: Reason For Exam: Neuro deficits 03/17/19 15:44 Speech Therapy Evaluation and Treat [CONS] Routine Reason For Exam: swallow eval 03/17/19 20:32 Consult to Physician [CONS] Routine Comment: Consulting Provider: LENIN ALLEN Physician Instructions: Reason For Exam: cva/bells palsy 03/18/19 11:56 Consult to Physician [CONS] Routine Comment: Consulting Provider: LENIN ALLEN Physician Instructions: Reason For Exam: complex migraine [facility] St[facility] Hospital course: Patient is a 24 y/o woman w/ a h/o PCOS, chronic back pain. She p/w Rt/ facial numbness/paresthesias that began while brushing her teeth. Patient reportedly came to the ER 3 days ago w/ symptoms of GRIJALVA, nausea, and vomiting. She was given fioricet and sent home. Patient had an epidural on 03/07/19 for back pain, and states that she developed GRIJALVA 2-3 days afterwards. per Neurology, the patient's clinical findings, it is possible that she has right facial nerve palsy. In support of this diagnosis, is the fact that she has mild weakness on upper and lower part of right side of face, and has decreased sensation on right side of tongue. Alternatively, patient may have conversion disorder, as there appears to be a somewhat distractable component to the facial weakness. 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 -Suspected Conversion: will give outpatient psy referral Disposition: TO HOME OR SELFCARE Time spent for discharge: 34 minutes Core Measure Documentation - Palliative Care Palliative Care/ Comfort Measures: Not Applicable - Core Measures Any of the following diagnoses?: none - VTE Discharge Requirements Deep Vein Thrombosis/Pulmonary Embolism Present on Admission: No Has pt received <5 days of overlap therapy or INR<2.0: No Anticoagulant overlap therapy prescribed at discharge: No Contraindication No Overlap Therapy order at DC: Not Indicated Exam - Physical Exam Narrative exam: Gen: WDWN, NAD, Awake, Alert, Orientated HEENT: NCAT, EOMI, PERRL, OP Clear Neck: supple, no adenopathy, no thyromegaly, no JVD CVS/Heart: RRR, normal S1S2, pulses present bilaterally Chest/Lungs: CTA B, Symmetrical chest expansion, good air entry bilaterally GI/Abdomen: soft, NTND, good bowel sounds, no guarding or rebound /Bladder: no suprapubic tenderness, no CVA or paraspinal tenderness Extermity/Skin: no c/c/e, no obvious rash MSK: FROM x 4 Neuro: CN 2-12 grossly intact except facial nerve, no new focal deficits, left facial asymmetry but forehead muscle can move, prolonged smiling causes the muscle to fatigue and move, ?true paralysis Psych: calm - Constitutional Vitals: Temp Pulse Resp BP Pulse Ox 98.2 F 70 18 108/69 99 03/19/19 06:32 03/19/19 06:32 03/18/19 22:10 03/19/19 06:32 03/19/19 06:32 Plan Activity: other (no strenous activity until cleared by a Neurologist) Diet: regular Follow up with: ELIZABETH RODRIGUES MD [Staff Physician] - [address] [facility] MD MIHIR [Primary Care Provider] - 7 Days ARTHUR FRIED MD [Staff Physician] - 7 Days Prescriptions: predniSONE [Deltasone] 1 dose PO QDAY #65 tab Butalb/Acetaminophen/Caffeine [Fioricet 50-300-40 mg CAP] 1 cap PO Q8HR PRN #7 cap PRN Reason: Headache valACYclovir [Valtrex] 500 mg PO TID #30 tablet
--- NOTE | 2019-03-19 12:39 | Progress Note ---
Assessment and Plan Patient is a 24 y/o woman w/ a h/o PCOS, chronic back pain who p/w right facial paresthesias and weakness. According to the patient's clinical findings, it is possible that she has right facial nerve palsy. In support of this diagnosis, is the fact that she has mild weakness on upper and lower part of right side of face, and has decreased sensation on right side of tongue. Alternatively, patient may have conversion disorder, as there appears to be a somewhat distractable component to the facial weakness. There is also possibility of CSF leak causing GRIJALVA, however GRIJALVA have improved and almost resolved now, and do not have a postural/positional component. Plan: 1. 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 - Discussed possibility of CSF leak causing headache, however patient's GRIJALVA is improving, and almost completely resolved now. Patient did not want to pursue CT myelogram at this point, as GRIJALVA have improved. If they worsen of persist, this could be done in the future. - Cont. patient on Valacyclovir 500mg TID for 7 days, and Prednisone 60mg daily for 7 days for Right facial nerve palsy. After 7 days, taper prednisone by decreasing dose by 10mg per day, for 7 days. - Will continue to monitor patient. Thank you for allowing me to take part in the care of this patient. Roni St MD Neurology Subjective Date of service: 03/19/19 Principal diagnosis: Facial nerve palsy Interval history: No acute events overnight. Objective - Exam Narrative Exam: Patient is awake, alert, oriented x4, follows complex commands. PERRL, EOMI, tongue midline, decrease to LT on Rt. face, noted to have mild weakness in upper and lower part of Rt. side of face, which appears to be intermittently distractable. Decreased taste sensation on right side of tongue. 5/5 strength in all extremities, B/l intact to LT. B/l intact to FTN and HTS. 2+ reflexes throughout. No aphasia or dysarthria noted. - Vital Sign Vital Signs - 12hr 03/19/19 06:32 Temperature 98.2 F Pulse Rate 70 Blood Pressure 108/69 O2 Sat by Pulse 99 Oximetry - General Apperance Constitutional: comfortable - EENT EENT: ATNC, PERRL, mucous membranes moist, hearing intact, vision intact - Respiratory Respiratory: lungs clear, normal breath sounds - Cardiovascular Cardiovascular: regular rate, normal S1, normal S2 Extremities: no clubbing, cyanosis, no inflammation - Gastrointestinal Gastrointestinal: normoactive bowel sounds, soft, non-tender - Integumentary Integumentary: normal - Musculoskeletal Musculoskeletal: no fluid collection, normal range of motion - Psychiatric Psychiatric: mood/affect appropriate
[2019-03-19 13:42] VITALS: BP 108/61
--- NOTE | 2019-03-19 17:47 | Magnetic Resonance Report ---
MRA and MRV HEAD 03/19/2019 INDICATION / CLINICAL INFORMATION: Rule out central venous sinus thrombosis. TECHNIQUE: Routine MRA and MRV of the head is performed. 3-D/MIP reformats postprocessed. COMPARISON: None available. FINDINGS: MRA HEAD: Intracranial internal carotid arteries: No significant abnormality. Anterior cerebral arteries: No significant abnormality. Middle cerebral arteries: No significant abnormality. Intracranial vertebral arteries: No significant abnormality. Basilar artery: No significant abnormality. Posterior cerebral arteries: No significant abnormality. The MR venogram component demonstrates normal flow signal in the major dural sinuses and deep venous structures, with no evidence of venous occlusion. IMPRESSION: Negative exam. Signer Name: Estuardo Somers MD Signed: 03/19/2019 5:43 PM Workstation Name: [id number]
[2019-03-19] MEDS: TYLENOL PO PRN (17:59)
[2019-03-19] MEDS: GABAPENTIN PO SCH (17:59)
== END 2019-03-19 18:45 | disposition home or self-care (01) ==
LOC: ED 11:39 → 3A 15:43
PROVIDERS: ADMIT Internal Medicine; ATTEND Internal Medicine
DX: I63.9 Cerebral infarction, unspecified (principal); G51.0 Bell's palsy; E66.9 Obesity, unspecified; Z68.30 Body mass index [BMI] 30.0-30.9, adult; Z98.890 Other specified postprocedural states
CPT/HCPCS: 36415; 70546; 70551; 85652; 90686; 92610; 96374; 96375; 96376; 97161; 97165; 99284; 99406; A9270; G0378; J1200; J1885; J2765; J2920; J7512